=== PATIENT | male | born 1995 | race Two or more races ===

== ENCOUNTER 2018-08-24 23:48 | Emergency (ER) | payer MEDICAID, OTHER ==
[~2018-08-24] VITALS: Ht 175.3 cm; Wt 82.1 kg
[2018-08-24 23:54] VITALS: BP 145/79
--- NOTE | 2018-08-25 00:03 | NUR ---
CUT 2ND FINGER ON METAL EQUIPMENT. PRESENTS WITH 1/2 INCH LAC TO 2ND IFINGER OF RIGHT HAND per triage note
[2018-08-25] MEDS ORDERED: DIPH,PERTUSS(ACELL),TET VAC/PF 0.5 ML IM-VACC ONE ×2 (00:30→01:10)
[2018-08-25] MEDS ORDERED: LIDOCAINE-MPF 1%, 5ML INFIL ONE (00:30)
[2018-08-25] MEDS ORDERED: LIDOCAINE-MPF 1%, 5ML ONE (00:39)
--- NOTE | 2018-08-25 01:27 | NUR ---
Patient/Caregiver given discharge instructions and they have confirmed that they understand the instructions. Patient ambulatory with steady gait.
== END 2018-08-25 01:28 | disposition home or self-care (01) ==
LOC: ED 23:59
DX: S61.210A Laceration without foreign body of right index finger without damage to nail, initial encounter (principal); F17.210 Nicotine dependence, cigarettes, uncomplicated; W31.1XXA Contact with metalworking machines, initial encounter; Y93.89 Activity, other specified; Y92.69 Other specified industrial and construction area as the place of occurrence of the external cause; Y99.0 Civilian activity done for income or pay
CPT/HCPCS: 12041; 90471; 90715; 99284

== ENCOUNTER 2018-09-04 09:40 | Emergency (ER) | payer OTHER ==
[~2018-09-04] VITALS: Ht 175.3 cm; Wt 81.0 kg
[2018-09-04 09:46] VITALS: BP 114/65
== END 2018-09-04 11:49 | disposition home or self-care (01) ==
LOC: ED 11:40
DX: S61.210D Laceration without foreign body of right index finger without damage to nail, subsequent encounter (principal); X58.XXXD Exposure to other specified factors, subsequent encounter; F17.200 Nicotine dependence, unspecified, uncomplicated
CPT/HCPCS: 99283